=== PATIENT | male | born 1965 ===

== ENCOUNTER 2018-08-10 18:17 | Inpatient (IN) | payer OTHER ==
[2018-08-10] MEDS ORDERED: Sodium Chloride 0.9% 1,000 ML IV STA ×2 (18:51→22:57)
--- NOTE | 2018-08-10 19:05 | ED PDOC ---
Hyperglycemia/Hypoglycemia Time Seen by Provider: 08/10/18 18:40 Chief Complaint (Nursing): High Blood Sugar Chief Complaint (Provider): Hyperglycemia History Per: Patient History/Exam Limitations: no limitations Onset/Duration Of Symptoms: Days (x3 weeks) : The patient does not have any of the infectious symptoms listed except for those marked. Additional Complaint(s): 52 year old male with history of HTN and hyperlipidemia presents to ED with hyperglycemia. Patient reports increased thirst, urinary frequency, weakness, fatigue, mild headache for last 3 weeks. He has lost 24 lb due to poor appetite. Patient was seen by PMD today and was told that he had very elevated blood sugar levels although he has no history of diabetes. PMD: Dg Gaming Past Medical History Reviewed: Historical Data, Nursing Documentation, Vital Signs Vital Signs: Last Vital Signs Temp 97.6 F 08/10/18 18:34 Pulse 93 H 08/10/18 18:34 Resp 16 08/10/18 18:34 BP 143/88 08/10/18 18:34 Pulse Ox 100 08/10/18 18:34 Primary Care Provider: Dg Gaming - Medical History PMH: HTN, Hyperlipidemia - Surgical History Other surgeries: eye surgery. lipoma surgery. right shoulder - Family History Family History: States: Hypertension - Social History Current smoker - smoking cessation education provided: No Alcohol: None Drugs: Denies - Home Medications Home Medications: Ambulatory Orders Medication Instructions Recorded No Known Home Med 08/10/18 - Allergies Allergies/Adverse Reactions: Allergies Allergy/AdvReac Type Severity Reaction Status Date / Time No Known Allergies Allergy Verified 08/10/18 18:34 Review of Systems ROS Statement: Except As Marked, All Systems Reviewed And Found Negative Constitutional: Positive for: Weakness, Malaise (fatigue), Weight loss (24 lb loss due to poor appetite), Other (increased thirst) Genitourinary Male: Positive for: Frequency Neurological: Positive for: Headache (mild) Physical Exam - Reviewed Nursing Documentation Reviewed: Yes Vital Signs Reviewed: Yes - Physical Exam Appears: Positive for: No Acute Distress Head Exam: Positive for: ATRAUMATIC, NORMOCEPHALIC Skin: Positive for: Warm, Dry Eye Exam: Positive for: EOMI, PERRL ENT: Positive for: Other (dry mucous membranes) Neck: Positive for: Painless ROM, Supple Cardiovascular/Chest: Positive for: Regular Rate, Rhythm, Chest Non Tender. Negative for: Murmur Respiratory: Positive for: Normal Breath Sounds. Negative for: Respiratory Distress Gastrointestinal/Abdominal: Positive for: Soft. Negative for: Tenderness, Mass, Distended, Guarding Back: Positive for: Normal Inspection. Negative for: Decreased ROM Extremity: Positive for: Normal ROM. Negative for: Deformity Lymphatic: Negative for: Adenopathy Neurological/Psych: Positive for: Awake, Alert. Negative for: Motor/Sensory Deficits - Laboratory Results Result Diagrams: 08/10/18 19:45 08/10/18 19:45 - ECG ECG: Positive for: Interpreted By Me ECG Rhythm: Positive for: Normal QRS, Normal ST Segment, Sinus Rhythm (84) O2 Sat by Pulse Oximetry: 100 (RA) Pulse Ox Interpretation: Normal - Radiology X-Ray: Interpreted by Me X-Ray Interpretation: No Acute Disease Medical Decision Making Medical Decision Making: Time: 1854 Initial Impression: new onset diabetes, hyperglycemia Ddx: Initial Plan: --Labs (CMP, CBC, Magnesium, Phosphorous, Troponin, TSH) --EKG --BBK --CXR --IV Fluid --Urinalysis 1854 Patient to be hospitalized for uncontrolled diabetes pending ER workup 1919 No acute findings in Xray 2019 abg demonstrates no acidosis insulin ordered 2044 Labs demonstrate hyperglycemia, elevated anion gap, ketones in UA. DW Dr Ocampo PMD for hospitalization Scribe Attestation: Documented by Jeff Unger acting as a scribe for Cassie Ann MD. Provider Scribe Attestation: All medical record entries made by the Scribe were at my direction and personally dictated by me. I have reviewed the chart and agree that the record accurately reflects my personal performance of the history, physical exam, medical decision making, and the department course for this patient. I have also personally directed, reviewed, and agree with the discharge instructions and disposition. Disposition - Clinical Impression Clinical Impression: Hyperglycemia, Uncontrolled diabetes mellitus, Dehydration - Disposition Disposition Time: 19:00 Condition: FAIR - Pt Status Changed To: Hospital Disposition Of: Inpatient - Admit Certification Admit to Inpatient:: After my assessment, the patient will require hospitalization for at least two midnights. This is because of the severity of symptoms shown, intensity of services needed, and/or the medical risk in this patient being treated as an outpatient. - POA Present On Arrival: Poor Glycemic Control
[2018-08-10 20:13] LABS: VENOUS BLOOD GAS BASE EXCESS -1.4 mmol/L (0.0-2.0); VENOUS BLOOD GAS PCO2 56 mmHg (40-60); VENOUS BLOOD GAS PO2 23 mm/Hg (30-55); VENOUS BLOOD PH 7.28 (7.32-7.43)
[2018-08-10 20:15] LABS: URINE BILIRUBIN NEGATIVE (NEGATIVE); URINE BLOOD NEGATIVE (NEGATIVE); URINE CLARITY CLEAR (Clear); URINE COLOR STRAW (YELLOW); URINE GLUCOSE (UA) >=500 mg/dL (NEGATIVE); URINE LEUKOCYTE ESTERASE NEG Leu/uL (Negative); URINE PROTEIN NEGATIVE (NEGATIVE); URINE UROBILINOGEN 0.2-1.0 mg/dL (0.2-1.0)
[2018-08-10 20:21] LABS: ABG ALLEN TEST YES; ARTERIAL BLOOD GAS HCO3 20.8 mmol/L (21-28); ARTERIAL BLOOD GAS O2 SAT 98.1 % (95-98); ARTERIAL BLOOD GAS PCO2 36 mm/Hg (35-45); ARTERIAL BLOOD GAS PH 7.35 (7.35-7.45); ARTERIAL BLOOD GAS PO2 72 mm/Hg (80-100)
[2018-08-10] MEDS ORDERED: Insulin Regular 100 units/ml SC STA ×2 (20:23→22:40)
[2018-08-10] MEDS ORDERED: Insulin Regular 100 units/ml IVP STA (20:23)
[2018-08-10 20:31] LABS: BASO # 0.1 K/uL (0.0-0.2); BASO % 0.6 % (0.0-2.0); EOS % 0.5 % (0.0-4.0); HEMOGLOBIN 15.8 g/dL (12.0-18.0); LYMPH # 0.9 K/uL (1.0-4.3); LYMPH % 10.3 % (20.0-40.0); MEAN CELL VOLUME 90.1 fl (80.0-94.0); MEAN CORPUSCULAR HEMOGLOBIN 30.6 pg (27.0-31.0); MEAN CORPUSCULAR HGB CONC 33.9 g/dL (33.0-37.0); MONO # 0.7 K/uL (0.0-0.8); MONO % 7.3 % (0.0-10.0); NEUT # 7.4 K/uL (1.8-7.0); NEUT % 81.3 % (50.0-75.0); NRBC % 0.1 % (0.0-0.0); RBC 5.18 Mil/uL (4.40-5.90); RED CELL DISTRIBUTION WIDTH 13.3 % (11.5-14.5); WHITE BLOOD COUNT 9.1 K/uL (4.8-10.8)
[2018-08-10 20:40] LABS: ALB/GLOB RATIO 1.7 (1.0-2.1); ALT/SGPT 33 U/L (21-72); AST/SGOT 20 U/L (17-59); GFR NON-AFRICAN AMERICAN > 60
[2018-08-10 20:44] LABS: BLOOD UREA NITROGEN 21 mg/dl (9-20)
[2018-08-10] MEDS ORDERED: Insulin Regular 100 units/ml ONE ×2 (20:50→22:49)
[2018-08-10] MEDS ORDERED: Glucagon Recombinant 1 mg Inj IM PRN (20:55)
[2018-08-10] MEDS ORDERED: Dextrose 50% SYRINGE Inj (50 ml) IVP PRN (20:55)
[2018-08-10] MEDS ORDERED: Dextrose 50% SYRINGE Inj (50 ml) IV PRN (20:55)
[2018-08-10] MEDS: Insulin Regular 100 units/ml SC SCH (22:52)
[2018-08-11 00:33] VITALS: BMI 28.0
[2018-08-11] MEDS: Insulin Regular 100 units/ml SC SCH ×4 (08:28→21:09)
--- NOTE | 2018-08-11 09:32 | RAD ---
Date of service: 08/10/2018 HISTORY: hyprglycemia COMPARISON: No prior. TECHNIQUE: Chest PA and lateral views FINDINGS: LUNGS: No active pulmonary disease. PLEURA: No significant pleural effusion identified. No pneumothorax apparent. CARDIOVASCULAR: No aortic atherosclerotic calcification present. Normal cardiac size. No pulmonary vascular congestion. OSSEOUS STRUCTURES: No significant abnormalities. VISUALIZED UPPER ABDOMEN: Normal. OTHER FINDINGS: None. IMPRESSION: No acute cardiopulmonary disease appreciated.
[2018-08-11 10:07] LABS: ALB/GLOB RATIO 1.7 (1.0-2.1); ALBUMIN 3.6 g/dL (3.5-5.0); ALT/SGPT 32 U/L (21-72); AST/SGOT 19 U/L (17-59); BLOOD UREA NITROGEN 17 mg/dl (9-20); CALCIUM 8.3 mg/dL (8.4-10.2); GFR NON-AFRICAN AMERICAN > 60
[2018-08-11 10:11] LABS: T3 0.585 nmol/L (1.49-2.60)
--- NOTE | 2018-08-11 10:14 | CARD ---
APPROVED REPORT Date of service: 08/10/2018 EKG Measurement Heart [id number] <Conclusion> Normal sinus rhythm Normal ECG
[2018-08-11 11:36] LABS: SQUAMOUS EPITHIAL < 1 /hpf (0-5); URINE BILIRUBIN NEGATIVE (NEGATIVE); URINE BLOOD NEGATIVE (NEGATIVE); URINE CLARITY CLEAR (Clear); URINE COLOR STRAW (YELLOW); URINE GLUCOSE (UA) >=500 mg/dL (NEGATIVE); URINE LEUKOCYTE ESTERASE NEG Leu/uL (Negative); URINE PROTEIN NEGATIVE (NEGATIVE); URINE UROBILINOGEN 0.2-1.0 mg/dL (0.2-1.0)
[2018-08-12] MEDS ORDERED: Insulin Regular 100 units/ml SC SCH (09:28)
[2018-08-12] MEDS: Sodium Chloride 0.9% 1,000 ML IV SCH ×2 (09:58→20:31)
[2018-08-12] MEDS ORDERED: Insulin Regular 100 units/ml SC ONE (11:18)
[2018-08-12] MEDS: Insulin Regular 100 units/ml SC SCH ×3 (11:33→21:31)
[2018-08-12] MEDS: GlipiZIDE 5 mg SR Tab PO SCH (12:26)
[2018-08-12] MEDS ORDERED: Insulin Detemir 100 Units/ml Inj SC SCH (22:00)
[2018-08-12 23:46] VITALS: RESP 20
[2018-08-13] MEDS: Sodium Chloride 0.9% 1,000 ML IV SCH (05:37)
[2018-08-13 05:45] LABS: HEMOGLOBIN 12.9 g/dL (12.0-18.0); MEAN CELL VOLUME 89.9 fl (80.0-94.0); MEAN CORPUSCULAR HEMOGLOBIN 30.1 pg (27.0-31.0); MEAN CORPUSCULAR HGB CONC 33.4 g/dL (33.0-37.0); RBC 4.3 Mil/uL (4.40-5.90); WHITE BLOOD COUNT 5.3 K/uL (4.8-10.8)
[2018-08-13 05:58] LABS: BLOOD UREA NITROGEN 17 mg/dl (9-20); CALCIUM 8.4 mg/dL (8.4-10.2); GFR NON-AFRICAN AMERICAN > 60
[2018-08-13 08:10] VITALS: BP 114/76; PULSE 83; TEMP 97.9; O2SAT 97
[2018-08-13] MEDS: GlipiZIDE 5 mg SR Tab PO SCH (08:21)
[2018-08-13] MEDS: Insulin Regular 100 units/ml SC SCH ×2 (08:22→12:35)
--- NOTE | 2018-08-13 11:53 | CP.PCM.PCO ---
Assessment/Plan - Assessment/Plan Assessment (Free Text): Pt stable, states he feels good. Aaox3, heart S1S2, lungs clear, abd soft non-tender, neurovascular check intact. Pt's BG down to 200s to 300s, pt refused taking insulin at home, advised of the risks and benefits of not taking insulin, pt understands but does not want to do insulin at home. Pt placed on 3 oral hypoglycemics. Pt to f/u with Dr. Ocampo on friday for BG check and medication adjustment. Meds as per med rec, Rx given Pt seen and cleared for d/c home by Dr. Ocampo - Consults Consult Orders: Consultations 08/11/18 05:08 Diabetic Education Referral Routine Comment: Physician Instructions: Reason For Exam: new onset DM
--- NOTE | 2018-08-13 18:06 | CP.PCM.PN ---
Subjective - Date & Time of Evaluation Date of Evaluation: 08/12/18 Time of Evaluation: 11:00 - Subjective Subjective: patient seen and examined at bedside. Interim events noted No complaints offered at this time Patient refuses to start Insulin although Hgba1c 13 and BS >300s denies cp/sob/fever/chills. available diagnostic data reviewed Review of Systems All systems: reviewed and no additional remarkable complaints except mentioned above Objective Vital Signs Stable - Constitutional Appears: Non-toxic, No Acute Distress Head Exam: NORMAL INSPECTION Eye Exam: Normal appearance Respiratory Exam: NORMAL BREATHING PATTERN Cardiovascular Exam: +S1, +S2 GI & Abdominal Exam: Soft Neurological Exam: Alert, Awake Psychiatric exam: Normal Affect, Normal Mood Skin Exam: Normal Color, Warm Assessment and Plan monitor vitals monitor labs Patient verbalized understanding of risks of not starting insulin and achieving glycemic control including but not limited to risk of amputations, heart disease, cva, and even . Therefore will continue with metformin 1000mg bid, januvia 100mg daily, and will add glipizide 5mg now and then again in AM. continue to check accuchecks rest of plan as ordered Objective - Vital Signs/Intake and Output Vital Signs (last 24 hours): Temp Pulse Resp BP Pulse Ox 97.9 F 83 20 114/76 97 08/13/18 08:08 08/13/18 08:08 08/13/18 08:08 08/13/18 08:08 08/13/18 08:08 - Labs Labs: 08/13/18 05:37 08/13/18 05:37 Assessment and Plan (1) Hyperglycemia Status: Acute (2) Uncontrolled diabetes mellitus Status: Acute
--- NOTE | 2018-08-13 18:13 | CP.PCM.DIS ---
Provider - Provider Date of Admission: 08/10/18 20:25 Attending physician: Dg Gaming MD Consults: 08/11/18 05:08 Diabetic Education Referral Routine Comment: Physician Instructions: Reason For Exam: new onset DM Time Spent in preparation of Discharge (in minutes): 30 Diagnosis - Discharge Diagnosis (1) Hyperglycemia Status: Acute (2) Uncontrolled diabetes mellitus Status: Acute Hospital Course - Lab Results Lab Results: Most Recent Lab Values WBC 5.3 K/uL (4.8-10.8) 08/13/18 05:37 RBC 4.30 Mil/uL (4.40-5.90) L 08/13/18 05:37 Hgb 12.9 g/dL (12.0-18.0) D 08/13/18 05:37 Hct 38.7 % (35.0-51.0) 08/13/18 05:37 MCV 89.9 fl (80.0-94.0) 08/13/18 05:37 MCH 30.1 pg (27.0-31.0) 08/13/18 05:37 MCHC 33.4 g/dL (33.0-37.0) 08/13/18 05:37 RDW 13.0 % (11.5-14.5) 08/13/18 05:37 Plt Count 153 K/uL (130-400) 08/13/18 05:37 MPV 11.0 fl (7.2-11.7) 08/10/18 19:45 Neut % (Auto) 81.3 % (50.0-75.0) H 08/10/18 19:45 Lymph % (Auto) 10.3 % (20.0-40.0) L 08/10/18 19:45 [place] % (Auto) 7.3 % (0.0-10.0) 08/10/18 19:45 Eos % (Auto) 0.5 % (0.0-4.0) 08/10/18 19:45 Baso % (Auto) 0.6 % (0.0-2.0) 08/10/18 19:45 Neut # (Auto) 7.4 K/uL (1.8-7.0) H 08/10/18 19:45 Lymph # (Auto) 0.9 K/uL (1.0-4.3) L 08/10/18 19:45 [place] # (Auto) 0.7 K/uL (0.0-0.8) 08/10/18 19:45 Eos # (Auto) 0.0 K/uL (0.0-0.7) 08/10/18 19:45 Baso # (Auto) 0.1 K/uL (0.0-0.2) 08/10/18 19:45 pCO2 36 mm/Hg (35-45) 08/10/18 20:18 pO2 72 mm/Hg (80-100) L 08/10/18 20:18 HCO3 20.8 mmol/L (21-28) L 08/10/18 20:18 ABG pH 7.35 (7.35-7.45) 08/10/18 20:18 ABG Total CO2 21.0 mmol/L (22-28) L 08/10/18 20:18 ABG O2 Saturation 98.1 % (95-98) H 08/10/18 20:18 ABG Base Excess -5.1 mmol/L (-2.0-3.0) L 08/10/18 20:18 Sonny Test Yes 08/10/18 20:18 ABG Potassium 4.6 mmol/L (3.6-5.2) 08/10/18 20:18 VBG pH 7.28 (7.32-7.43) L 08/10/18 20:08 VBG pCO2 56 mmHg (40-60) 08/10/18 20:08 VBG HCO3 22.0 mmol/L 08/10/18 20:08 VBG Total CO2 28.0 mmol/L (22-28) 08/10/18 20:08 VBG O2 Sat (Calc) 35.5 % (40-65) L 08/10/18 20:08 VBG Base Excess -1.4 mmol/L (0.0-2.0) L 08/10/18 20:08 VBG Potassium 5.3 mmol/L (3.6-5.2) H 08/10/18 20:08 A-a O2 Difference 33.0 mm/Hg 08/10/18 20:18 Sodium 133.0 mmol/L (132-148) 08/10/18 20:18 Chloride 94.0 mmol/L (98-107) L 08/10/18 20:18 Glucose 596 mg/dL (75-110) H* 08/10/18 20:18 Lactate 1.3 mmol/L (0.7-2.1) 08/10/18 20:18 FiO2 21.0 % 08/10/18 20:18 Crit Value Called To Dr negrita bell 08/10/18 20:18 Crit Value Called By [id number] 08/10/18 20:18 Crit Value Read Back Y 08/10/18 20:18 Blood Gas Notified Time 202008/10/18 20:18 Sodium 134 mmol/l (132-148) 08/13/18 05:37 Potassium 4.0 MMOL/L (3.6-5.0) 08/13/18 05:37 Chloride 101 mmol/L (98-107) 08/13/18 05:37 Carbon Dioxide 25 mmol/L (22-30) 08/13/18 05:37 Anion Gap 12 (10-20) 08/13/18 05:37 BUN 17 mg/dl (9-20) 08/13/18 05:37 Creatinine 0.6 mg/dl (0.8-1.5) L 08/13/18 05:37 Est GFR ( Amer) > 60 08/13/18 05:37 Est GFR (Non-Af Amer) > 60 08/13/18 05:37 POC Glucose (mg/dL) 319 mg/dL (65-110) H 08/13/18 14:49 Random Glucose 281 mg/dL (75-110) H 08/13/18 05:37 Hemoglobin A1c 13.4 % (4.2-6.5) H 08/11/18 08:55 Calcium 8.4 mg/dL (8.4-10.2) 08/13/18 05:37 Phosphorus 3.4 mg/dl (2.5-4.5) 08/11/18 08:55 Magnesium 1.7 MG/DL (1.6-2.3) 08/11/18 08:55 Total Bilirubin 0.9 mg/dl (0.2-1.3) 08/11/18 08:55 AST 19 U/L (17-59) 08/11/18 08:55 ALT 32 U/L (21-72) 08/11/18 08:55 Alkaline Phosphatase 83 U/L (38-126) 08/11/18 08:55 Troponin I < 0.0120 ng/mL (0.00-0.120) 08/10/18 19:45 Total Protein 5.7 G/DL (6.3-8.2) L 08/11/18 08:55 Albumin 3.6 g/dL (3.5-5.0) 08/11/18 08:55 Globulin 2.2 gm/dL (2.2-3.9) 08/11/18 08:55 Albumin/Globulin Ratio 1.7 (1.0-2.1) 08/11/18 08:55 Thyroxine (T4) 7.81 ug/dl (5.5-11.0) 08/11/18 08:55 Total T3 0.585 nmol/L (1.49-2.60) L 08/11/18 08:55 TSH 3rd Generation 0.48 mIU/ML (0.46-4.68) 08/11/18 08:55 Arterial Blood Potassium 4.6 mmol/L (3.6-5.2) 08/10/18 20:18 Venous Blood Potassium 5.3 mmol/L (3.6-5.2) H 08/10/18 20:08 Urine Color Straw (YELLOW) 08/11/18 11:27 Urine Clarity Clear (Clear) 08/11/18 11:27 Urine pH 5.0 (5.0-8.0) 08/11/18 11:27 Ur Specific [place] 1.022 (1.003-1.030) 08/11/18 11:27 Urine Protein Negative mg/dL (NEGATIVE) 08/11/18 11:27 Urine Glucose (UA) >=500 mg/dL (NEGATIVE) 08/11/18 11:27 Urine Ketones 80 mg/dL (NEGATIVE) 08/11/18 11:27 Urine Blood Negative (NEGATIVE) 08/11/18 11:27 Urine Nitrate Negative (NEGATIVE) 08/11/18 11:27 Urine Bilirubin Negative (NEGATIVE) 08/11/18 11:27 Urine Urobilinogen 0.2-1.0 mg/dL (0.2-1.0) 08/11/18 11:27 Ur Leukocyte Esterase Neg Felice/uL (Negative) 08/11/18 11:27 Urine RBC (Auto) < 1 /hpf (0-3) 08/11/18 11:27 Urine Microscopic WBC < 1 /hpf (0-5) 08/11/18 11:27 Ur Squamous Epith Cells < 1 /hpf (0-5) 08/11/18 11:27 Blood Type O POSITIVE 08/10/18 20:15 Blood Type Confirm O POSITIVE 08/11/18 10:30 Antibody Screen Negative 08/10/18 20:15 BBK History Checked No verified bt 08/10/18 20:15 - Hospital Course Hospital Course: 52 year old male with history of HTN and hyperlipidemia presented to ED with hyperglycemia. Patient found to have new-onset diabetes. Labs demonstrated hyperglycemia, elevated anion gap, ketones in UA. BS was in the 500s. Patient was admitted for further evaluation and management. Patient improved with medications and fluids. Patient refused to use insulin, despite Hgba1c of 13, and verbalized understanding of the risks of not using insulin. Patient BS improved with oral hypoglycemics. Will discharged patient with metformin 1000mg bid, januvia 100mg daily, and glipizide xl 10mg daily. Patient agreed to follow up in office in 2 days for further follow up and management. Discharge Exam - Head Exam Head Exam: ATRAUMATIC, NORMOCEPHALIC - Eye Exam Eye Exam: Normal appearance - Respiratory Exam Respiratory Exam: NORMAL BREATHING PATTERN - Cardiovascular Exam Cardiovascular Exam: +S1, +S2 - Neurological Exam Neurological exam: Alert, Oriented x3 - Psychiatric Exam Psychiatric exam: Normal Affect, Normal Mood - Skin Skin Exam: Normal Color, Warm Discharge Plan - Discharge Medications Prescriptions: GlipiZIDE [Glucotrol] 10 mg PO DAILY #30 tab MetFORMIN [glucoPHAGE] 1,000 mg PO BIDWM #30 tab SITagliptin [Januvia] 100 mg PO DAILY #30 tab - Follow Up Plan Condition: STABLE Disposition: HOME/ ROUTINE Instructions: Hyperglycemia, Adult (DC), The ABCs of Diabetes, Diabetes and Diet Additional Instructions: laura reese [place] [id number] Referrals: [facility] [Outside] Dg Gaming MD [Family Provider] -
--- NOTE | 2018-08-14 06:44 | CP.PCM.HP ---
History of Present Illness - History of Present Illness History of Present Illness: This is a 52 y/o male admitted for excessive weight loss of mor than 20 pounds in 2 weeks and excessive urination for thepast three weeks. He was seen in my office yesterday and complained of fatigue and generalized weakness from exce ssive urination . Accucheck in the office showed more than 600 plus hence was sent to Er where he was noted to have severe hyperglycemia of 500 plus. He has a hx of DM 2 and was on metformin and Januvia but decided to stop taking the medications a year ago and has never followed up in the office. He claims that he had no symptoms till 3 weeks ago. He has no other significant medical condition. Present on Admission - Present on Admission Any Indicators Present on Admission: No History of DVT/PE: No History of Uncontrolled Diabetes: Yes Urinary Catheter: No Decubitus Ulcer Present: No Review of Systems - Constitutional Constitutional: Lethargy, Malaise, Weight Loss Additional comments: excessive urination Past Patient History - Past Medical History & Family History Past Medical History?: Yes - Past Social History Smoking Status: Never Smoked - CARDIAC Hx Cardiac Disorders: Yes - PULMONARY Hx Respiratory Disorders: No - NEUROLOGICAL Hx Neurological Disorder: No - HEENT Hx HEENT Problems: No - RENAL Hx Chronic Kidney Disease: No - ENDOCRINE/METABOLIC Hx Endocrine Disorders: Yes - HEMATOLOGICAL/ONCOLOGICAL Hx Blood Disorders: No Hx AIDS: No Hx Human Immunodeficiency Virus (HIV): No - INTEGUMENTARY Hx Dermatological Problems: No - MUSCULOSKELETAL/RHEUMATOLOGICAL Hx Musculoskeletal Disorders: No Hx Falls: No - GASTROINTESTINAL Hx Gastrointestinal Disorders: No - GENITOURINARY/GYNECOLOGICAL Hx Genitourinary Disorders: No - PSYCHIATRIC Hx Psychophysiologic Disorder: No Hx Substance Use: No - SURGICAL HISTORY Hx Surgeries: Yes Hx Eye Surgery: Yes Other/Comment: Right shulder surgery. Lypoma removal from left shoulder and abdomen. - ANESTHESIA Hx Anesthesia: Yes Hx Anesthesia Reactions: No Hx Malignant Hyperthermia: No Meds Home Medications: Home Medication List Medication Instructions Recorded Confirmed Type GlipiZIDE [Glucotrol] 10 mg PO DAILY #30 tab 08/13/18 Rx MetFORMIN [glucoPHAGE] 1,000 mg PO BIDWM #30 tab 08/13/18 Rx SITagliptin [Januvia] 100 mg PO DAILY #30 tab 08/13/18 Rx Allergies/Adverse Reactions: Allergies Allergy/AdvReac Type Severity Reaction Status Date / Time No Known Allergies Allergy Verified 08/10/18 18:34 Physical Exam - Constitutional Additional comments: dry skin - Respiratory Exam Respiratory Exam: Clear to Auscultation Bilateral - Cardiovascular Exam Cardiovascular Exam: REGULAR RHYTHM - GI/Abdominal Exam GI & Abdominal Exam: Normal Bowel Sounds - Neurological Exam Neurological exam: CN II-XII Intact, Oriented x3 Results - Vital Signs Recent Vital Signs: Last Vital Signs Temp 97.9 F 08/13/18 08:08 Pulse 83 08/13/18 08:08 Resp 20 08/13/18 08:08 BP 114/76 08/13/18 08:08 Pulse Ox 97 08/13/18 08:08 - Labs Result Diagrams: 08/13/18 05:37 08/13/18 05:37 Labs: Laboratory Results - last 24 hr 08/13/18 08/13/18 10:51 14:49 POC Glucose (mg/dL) 344 H 319 H Assessment & Plan (1) Uncontrolled diabetes mellitus Status: Acute (2) Dehydration Status: Acute (3) Weight loss of more than 10% body weight Status: Acute - Assessment and Plan (Free Text) Plan: Hydration accucheck with covergae start po meds monitor fbs a
== END 2018-08-13 16:12 | disposition home or self-care (01) | DRG 639 ==
LOC: H.ER 18:17 → H.ERHOLD 20:25 → H.MEDSURG1 08-11 00:24
PROVIDERS: ADMIT Family Medicine; ATTEND Family Medicine
DX: E11.65 Type 2 diabetes mellitus with hyperglycemia (principal); E78.5 Hyperlipidemia, unspecified; I10 Essential (primary) hypertension; E86.0 Dehydration; R63.4 Abnormal weight loss; Z68.28 Body mass index [BMI] 28.0-28.9, adult